=== PATIENT | male | born 1995 | race Two or more races ===

== ENCOUNTER 2020-05-21 01:59 | Emergency (ER) | payer OTHER ==
[~2020-05-21] VITALS: Ht 182.9 cm; Wt 63.5 kg
[2020-05-21 02:08] VITALS: BP 125/78; Ht 182.9 cm; Wt 63.5 kg
== END 2020-05-21 02:37 ==
LOC: ED 01:59
DX: Z02.89 Encounter for other administrative examinations (principal); Z20.828 Contact with and (suspected) exposure to other viral communicable diseases